=== PATIENT | female | born 1960 | race Caucasian/White ===

== ENCOUNTER 2021-03-16 07:44 | Day surgery (SDC) | payer OTHER ==
[~2021-03-16 07:44] MED LIST: Acetaminophen 325 MG Tab PO SCH; Lidocaine 1%/Sod Bicarbonate in NS 8.4% 1 ML Syringe IDERM PRN; Midazolam 1 MG/ML 2 ML SDV ONE; Pregabalin 25 MG Cap PO SCH; Propofol 200 MG/20 ML SDV ONE; Sodium Chloride 0.9% 10 ML Syringe FLUSH PRN; oxyCODONE ER 10 MG TAB.ER PO SCH
[2021-03-16] MEDS ORDERED: Ropivacaine 0.5% 5 MG/ML 30 ML SDV ONE (07:46)
[2021-03-16] MEDS ORDERED: EPINEPHrine 1 MG/ML SDV ONE (07:46)
[2021-03-16] MEDS ORDERED: ceFAZolin 1 GM Vial ONE (07:52)
[2021-03-16] MEDS: Lactated Ringers 1,000 ML IV SCH ×2 (08:05→13:15)
--- NOTE | 2021-03-16 08:19 | PCM.PREANE ---
Preanesthetic Assessment - Procedure Proposed Procedure: Right Total Knee Arthroplasty with Left Knee steroid Injection. - Anesthesia/Transfusion/Family Hx Anesthesia History: Prior Anesthesia Without Reaction Family History of Anesthesia Reaction: No Transfusion History: No Prior Transfusion(s) Intubation History: Unknown - Review of Systems General: No Symptoms Pulmonary: No Symptoms (History of DENAE with failed CPAP: patient denies DENAE/ Former smoker quit 1984, ETOH: rarely) Cardiovascular: No Symptoms (HTN) Gastrointestinal: No Symptoms (GERD-tums, Colitis, History of gastric bypass) Neurological: No Symptoms Other: Reports: Diabetes (History of prediabetes prior to weight loss.), Thyroid Problems (History of hypothyroidism), Depression - Physical Assessment NPO Status Date: 03/15/21 NPO Status Time: 23:58 Vital Signs: HR: 66 B/P: 140/82 Sat: 95% Resp: 18 Temp: 98 Height: 1.57 m Weight: 100 kg ASA Class: 2 Mental Status: Alert & Oriented x3 Airway Class: Mallampati = 2 Dentition: Reports: Normal Dentition, Caries Thyro-Mental Finger Breadths: 3 Mouth Opening Finger Breadths: 3 ROM/Head Extension: Full Lungs: Clear to Auscultation, Normal Respiratory Effort Cardiovascular: Regular Rate, Regular Rhythm, No Murmurs - Lab Values: All labs reviewed and noted and within acceptable ranges to proceed with scheduled procedure. - Imaging/EKG Impressions: EKG: NSR rate=75, LAD, ? LVH - Allergies Allergies/Adverse Reactions: Allergies Allergy/AdvReac Type Severity Reaction Status Date / Time lisinopril AdvReac Cough Verified 03/13/21 11:23 - Anesthesia Plan Pre-Op Medication Ordered: Other (Preoperative Meds: (lyrica, tylenol, oxycontin) all p.o. at 0816) - Acknowledgements Anesthesia Type Planned: Spinal (and a Right Adductor Canal Block under US guidance for post operative pain control requested by Dr. Mason.) Pt an Appropriate Candidate for the Planned Anesthesia: Yes Alternatives and Risks of Anesthesia Discussed w Pt/Guardian: Yes Pt/Guardian Understands and Agrees with Anesthesia Plan: Yes PreAnesthesia Questionnaire HEENT History: Reports: Impaired Vision, Other (See Below) Other HEENT History: wears glasses, contact Cardiovascular History: Reports: Hypertension Respiratory History: Reports: None Gastrointestinal History: Reports: GERD, Other (See Below) Other Gastrointestinal History: ulcerative colitis Genitourinary History: Reports: None ENAMEL FINISHER History: Reports: None Musculoskeletal History: Reports: Arthritis Neurological History: Reports: None Psychiatric History: Reports: Depression Endocrine/Metabolic History: Reports: Hypothyroidism Hematologic History: Reports: None Immunologic History: Reports: None Oncologic (Cancer) History: Reports: None Dermatologic History: Reports: None - Infectious Disease History Infectious Disease History: Reports: None - Past Surgical History Head Surgeries/Procedures: Reports: None Cardiovascular Surgical History: Reports: None Respiratory Surgical History: Reports: None GI Surgical History: Reports: Appendectomy, Bariatric Procedure, Colonoscopy Female Surgical History: Reports: Hysterectomy Male Surgical History: Reports: None Endocrine Surgical History: Reports: None Neurological Surgical History: Reports: None Musculoskeletal Surgical History: Reports: None Oncologic Surgical History: Reports: None Dermatological Surgical History: Reports: None - SUBSTANCE USE Tobacco Use Status *Q: Former Tobacco User Recreational Drug Use History: No - HOME MEDS Home Medications: Home Meds Cholecalciferol (Vitamin D3) [Vitamin D3] 10,000 unit PO DAILY 03/13/21 [History] Diclofenac Sodium [Voltaren 1% Gel] 1 dose TOP BID PRN 03/13/21 [History] Levothyroxine 25 mcg PO DAILY 03/13/21 [History] Losartan/Hydrochlorothiazide [Losartan-HCTZ 50-12.5 MG] 1 tab PO DAILY 03/13/21 [History] Lysine 500 mg PO DAILY 03/13/21 [History] Magnesium 200 mg PO DAILY 03/13/21 [History] Multivitamin 1 tab PO DAILY 03/13/21 [History] estradioL [Estradiol] 0.5 mg PO DAILY 03/13/21 [History] hydroCHLOROthiazide [Hydrochlorothiazide] 12.5 mg PO DAILY 03/13/21 [History] sulfaSALAzine [Azulfidine] 1,000 mg PO DAILY 03/13/21 [History] Cyclobenzaprine [Flexeril] 10 mg PO BID PRN #20 tab 03/16/21 [Rx] Rivaroxaban [Xarelto] 10 mg PO DAILY #30 tab 03/16/21 [Rx] oxyCODONE 5 - 10 mg PO Q4H PRN #40 tab 03/16/21 [Rx] - CURRENT (IN HOUSE) MEDS Current Meds: Current Medications Acetaminophen (Acetaminophen 325 Mg Tab) 975 mg PO ONETIME ANAIS Stop: 03/16/21 16:00 Morphine Sulfate 8 mg/Epinephrine HCl 0.3 mg/Cefuroxime Sodium 750 mg/Ketorolac Tromethamine 30 mg/Sodium Chloride 7.9 ml 0 mg .XX ASDIRECTED PRN PRN Reason: Pain Stop: 03/16/21 16:00 Lactated Ringer's (Ringers, Lactated) 1,000 mls @ 125 mls/hr IV ASDIRECTED ANAIS Stop: 03/16/21 23:00 Lidocaine/Sodium Bicarbonate (Lidocaine 1%/Sod Bicarbonate In Ns 8.4% 1 Ml Syringe) 0.25 ml IDERM ONETIME PRN PRN Reason: Prior to IV Start Stop: 03/16/21 18:00 Oxycodone HCl (Oxycodone Er 10 Mg Tab.Er) 10 mg PO ONETIME ANAIS Stop: 03/16/21 16:00 Pregabalin (Pregabalin 25 Mg Cap) 50 mg PO ONETIME ANAIS Stop: 03/16/21 16:00 Sodium Chloride (Sodium Chloride 0.9% 10 Ml Syringe) 10 ml FLUSH ASDIRECTED PRN PRN Reason: Keep Vein Open Stop: 03/16/21 18:00 Discontinued Medications Cefazolin Sodium (Cefazolin 1 Gm Vial) Confirm Administered Dose 2 gm .ROUTE .STK-MED ONE Stop: 03/16/21 07:53 Epinephrine HCl (Epinephrine 1 Mg/Ml Sdv) Confirm Administered Dose 1 mg .ROUTE .STK-MED ONE Stop: 03/16/21 07:47 Midazolam HCl (Midazolam 1 Mg/Ml 2 Ml Sdv) Confirm Administered Dose 2 mg .ROUTE .STK-MED ONE Stop: 03/16/21 07:43 Propofol (Propofol 200 Mg/20 Ml Sdv) Confirm Administered Dose 400 mg .ROUTE .STK-MED ONE Stop: 03/16/21 07:43 Ropivacaine (Ropivacaine 0.5% 5 Mg/Ml 30 Ml Sdv) Confirm Administered Dose 30 ml .ROUTE .STK-MED ONE Stop: 03/16/21 07:47
[2021-03-16] MEDS ORDERED: ePHEDrine 50 MG/ML SDV ONE (09:51)
[2021-03-16] MEDS ORDERED: fentaNYL 100 MCG/2 ML SDV ONE (10:14)
[2021-03-16] MEDS: Bupivacaine 0.25% 10 ML SDV ONE ×2 (10:27→11:40)
[2021-03-16] MEDS: Vancomycin 1 GM SDV ONE ×2 (10:27→11:19)
[2021-03-16] MEDS: Morphine 8 MG, EPINEPHrine 0.3 MG, Cefuroxime 750 MG, Ketorolac 30 MG, Sodium Chloride ... PRN ×10 (10:28→11:16)
[2021-03-16] MEDS: Triamcinolone Acetonide 40 MG/ML 1 ML SDV ONE ×2 (10:29→11:40)
[2021-03-16] MEDS ORDERED: Ketorolac 15 MG/ML SDV ONE (10:34)
[2021-03-16] MEDS ORDERED: Propofol 200 MG/20 ML SDV ONE ×2 (10:45→10:46)
--- NOTE | 2021-03-16 12:12 | PCM.POSTAN ---
POST ANESTHESIA ASSESSMENT - MENTAL STATUS Mental Status: Alert, Oriented - VITAL SIGNS Vital Signs: Last Vital Signs Temp 208.2 F H 03/16/21 12:00 Pulse 66 03/16/21 12:00 Resp 18 03/16/21 12:00 BP 107/67 03/16/21 12:00 Pulse Ox 100 03/16/21 12:00 1143 in PACU BP: 115/56 HR 85 RR 15 Temp: 97.4 Sat 96 2 liters - RESPIRATORY Respiratory Status: Respiratory Rate WNL, Airway Patent, O2 Saturation Stable - CARDIOVASCULAR CV Status: Pulse Rate WNL, Blood Pressure Stable - GASTROINTESTINAL GI Status: No Symptoms - PAIN Pain Score: 7 Free Text/Narrative:: Adductor canal block completed following arrival to PACU - POST OP HYDRATION Hydration Status: Adequate & Stable
--- NOTE | 2021-03-16 12:15 | PCM.PRNOTE ---
- Free Text/Narrative Note: Right selective femoral nerve block at the adductor canal for post-procedure pain control under US guidance requested by Dr. Mason. Date: 03/16/21 Time Out: 1150 Start: 1151 End: 1200 Chart reviewed. Consent signed. Questions answered. Appropriate monitors applied. Time out performed. Large amount of adipose tissue noted, depth increased to allow for visualization of anatomy. Right mid-shaft femur identified with ultrasound, scanning medially of femur, the femoral artery in the adductor canal visualized, and the femoral nerve located laterally to the artery. The skin was prepped lateral to the ultrasound probe with chlorahexadine times two. The 21ga 4 insulated block needle was inserted under direct ultrasound guidance into the adductor canal. 25mL of 0.5% ropivacaine with 1:200,000 epinephrine was injected circumferentially around the nerve with intermittent negative aspiration noted. Patient tolerated the procedure well. Sterile technique noted along with sterile gloves, mask, and sterile probe cover. See picture on progress note and vital signs on nurses notes. Block completed in PACU. Jamia Stuart, ACCOUNTANT SYSTEMS
[2021-03-16] MEDS ORDERED: Cyclobenzaprine 10 MG Tab PO ONE (12:18)
[2021-03-16] MEDS ORDERED: oxyCODONE 5 MG Tab PO PRN (12:18)
[2021-03-16] MEDS ORDERED: Lactated Ringers 1,000 ML ONE (12:27)
--- NOTE | 2021-03-16 12:31 | PCM48HPAN ---
Post Anesthesia Note - EVALUATION WITHIN 48HRS OF ANESTHETIC Vital Signs in Normal Range: Yes Patient Participated in Evaluation: Yes Respiratory Function Stable: Yes Airway Patent: Yes Cardiovascular Function Stable: Yes Hydration Status Stable: Yes Pain Control Satisfactory: Yes Nausea and Vomiting Control Satisfactory: Yes Mental Status Recovered: Yes Vital Signs: Last Vital Signs Temp 97.9 F 03/16/21 12:15 Pulse 65 03/16/21 12:15 Resp 12 03/16/21 12:15 BP 116/65 03/16/21 12:15 Pulse Ox 99 03/16/21 12:15
--- NOTE | 2021-03-16 12:42 | CR ---
Right knee: AP and crosstable lateral views of the right knee were obtained. Comparison: Prior right knee CT study of 03/03/21. Knee prosthesis is seen. Components are aligned. Patellar prosthesis is also noted. Soft tissue air is noted. Underlying bony structures show nothing acute. Impression: 1. Satisfactory postop radiographic appearance of recently placed right knee prostheses. Diagnostic code #2
--- NOTE | 2021-03-31 11:19 | PCM.OPNOTE ---
- General Post-Op/Procedure Note Date of Surgery/Procedure: 03/16/21 Operative Procedure(s): right total knee arthroplasty with david [employer] robotics and left knee corticosteroid injection Pre Op Diagnosis: bilateral knee osteoarthrosis Post-Op Diagnosis: Same Anesthesia Technique: Local, MAC, Spinal Primary Surgeon: Rey Mason Anesthesia Provider: Jamia Stuart Facilities Management Executive: Blanca Cox Facilities Management Executive: Celena Mullins EBL in mLs: 200 Complications: None Condition: Good Free Text/Narrative:: 12/03 13mm 29x9
--- NOTE | 2021-03-31 15:18 | OR ---
DATE OF OPERATION: 03/16/2021 SURGEON: Rey Mason MD OPERATION PERFORMED: Right total knee arthroplasty with [employer] robot[employer] and left knee corticosteroid injection. PREOPERATIVE DIAGNOSIS: Bilateral knee osteoarthrosis. POSTOPERATIVE DIAGNOSIS: Bilateral knee osteoarthrosis. ANESTHESIA: Local MAC with spinal. ANESTHESIA PROVIDER: Jose Luis Moss. ASSISTANTS: Blanca Cox PA-C and Celena Mullins LPN. ESTIMATED BLOOD LOSS: 200 mL. COMPLICATIONS: None. CONDITION: Stable. IMPLANT: 1. University size 3 press-fit CR femur. 2. University size 3 press-fit tibial baseplate. 3. Lala size 3 13 mm CS polyethylene insert. 4. University size 29 x 9 mm press-fit asymmetric patella. DESCRIPTION OF PROCEDURE: The patient was identified in the preoperative holding area where proper site was marked and identified by the surgeon. The patient was taken back to the operative theater where after adequate anesthesia, the patient's right lower extremity had a nonsterile tourniquet applied and then sterilely prepped and draped in the usual sterile fashion. OR time-out was performed. The patient received 2 g IV Ancef. Right lower extremity had the leg alegria boot applied and then was exsanguinated. Tourniquet was insufflated to 250 mmHg. Standard anterior incision was made and medial parapatellar arthrotomy was created. Deep fibers of the MCL were raised and anterior fat pad was resected. Attention was turned to the patella. Patella measured 21, resected to a 13 for 29 x 9 mm patella. Drill holes were then drilled and found to have adequate bone. At this time, two 4.0 Schanz pins were placed intra-incisionally on the femur and the Lala Aditya robotic array for the femur was placed. Two more small focal incisions were placed on the tibia 3 fingerbreadths below the tibial tubercle and the [employer] robotic array was placed. Checkpoints were placed on the femur and the tibia. Hip center rotation was obtained. Medial and lateral malleoli were marked. Both checkpoints were then marked. 40 points were then obtained on both the femur and the tibia for this [employer] robotic plan. The patient's knee then was brought to full extension. The patient was noted to have greater than 15 degrees of recurvatum. I then did varus-valgus instability at 0 degrees and at 90 degrees of flexion. At this time, we did 20 mm flexion and extension gaps with the patient. At this time, the [employer] robotic saw blade was brought in. The tibial cut was completed as well as posterior femoral cut, anterior femoral cut, and anterior chamfer cut. Saw blade was then switched and the distal femoral cut and posterior chamfer cuts were completed. It was found to have adequate bony resection as well as adequate bone stock. At this time, bony fragments were removed as well as the medial and lateral meniscus were resected and posterior osteophytes were removed. The size 3 trial baseplate was then placed. Size 3 trial femur was placed and a 9 mm trial poly was placed. The patient was noted to have significant extensor lag still. I was then able to get up to a size 13 and the patient had just 4 to 5 degrees of recurvatum which was significantly improved from previous. At this time, it was otherwise stable to varus-valgus stresses. The femur drill holes were drilled. The tibia was stamped and drilled in the proper rotation. Trial implants were then removed. The tibia was impacted into place. Size 3 femur was impacted [address] place and the 13 mm polyethylene insert was impacted in place. The patient's knee was brought to full extension. A 29 x 9 mm press-fit patella was then press-fit in place. At this time, tourniquet was deflated. Bleeders were cauterized. The [employer] robotic checkpoints were removed. 1 L pulse lavage irrigation with Ancef was irrigated through the knee along with 400 mL Irrisept irrigation. Periarticular injection was completed. Topical tranexamic acid and vancomycin powder were applied. A #2 barbed suture was used for closure of the medial parapatellar arthrotomy. 2-0 Vicryl was used subcutaneously as well as Stratafix and Prineo was used for skin closure. The patient had a sterile soft dressing applied. Attention was turned to the contralateral knee and 2 mL of 40 mg Kenalog and 4 mL of 0.25% Marcaine were injected in the left knee. The patient tolerated this well, was sent to PACU in stable condition. MMODAL /[id number]
== END 2021-03-16 15:48 | disposition home or self-care (01) ==
LOC: JD.SDS 07:44
PROVIDERS: ATTEND Orthopaedic Surgery
DX: M17.0 Bilateral primary osteoarthritis of knee (principal); G47.33 Obstructive sleep apnea (adult) (pediatric); E11.9 Type 2 diabetes mellitus without complications; I10 Essential (primary) hypertension; E03.9 Hypothyroidism, unspecified; Z90.49 Acquired absence of other specified parts of digestive tract; Z88.8 Allergy status to other drugs, medicaments and biological substances; Z79.899 Other long term (current) drug therapy; Z87.891 Personal history of nicotine dependence
CPT/HCPCS: 20610; 27447; 73560; 97110; 97116; 97161; 97165; 97535; A9270; C1713; C1776; J0171; J0690; J0697; J1885; J2250; J2270; J2704; J2795; J3010; J3301; J3370; J3490; J7120; 01402; 64450; 76942

== ENCOUNTER 2021-06-22 07:48 | Day surgery (SDC) | payer OTHER ==
[~2021-06-22 07:48] MED LIST changes: +Lactated Ringers 1,000 ML IV SCH; -Midazolam 1 MG/ML 2 ML SDV ONE; +Morphine 8 MG, EPINEPHrine 0.3 MG, Cefuroxime 750 MG, Ketorolac 30 MG, Sodium Chloride ... PRN; -Propofol 200 MG/20 ML SDV ONE
--- NOTE | 2021-06-22 08:07 | PCM.PREANE ---
Preanesthetic Assessment - Anesthesia/Transfusion/Family Hx Anesthesia History: Prior Anesthesia Without Reaction Family History of Anesthesia Reaction: No Transfusion History: No Prior Transfusion(s) Intubation History: Unknown - Review of Systems General: No Symptoms Pulmonary: Other (DENAE, failed CPAP) Cardiovascular: Other (HTN) Gastrointestinal: Other (GERD with TUMs usage and resolves it, S/P gastric bypass) Neurological: No Symptoms Other: Reports: Diabetes (DM 2), Thyroid Problems - Physical Assessment NPO Status Date: 06/21/21 NPO Status Time: 20:00 Weight: 98.1 kg ASA Class: 3 Mental Status: Alert & Oriented x3 Airway Class: Mallampati = 2 Dentition: Reports: Normal Dentition Thyro-Mental Finger Breadths: 3 Mouth Opening Finger Breadths: 3 ROM/Head Extension: Full Lungs: Clear to Auscultation, Normal Respiratory Effort Cardiovascular: Regular Rate, Regular Rhythm - Imaging/EKG Impressions: ekg nsr at 65 - Allergies Allergies/Adverse Reactions: Allergies Allergy/AdvReac Type Severity Reaction Status Date / Time lisinopril AdvReac Cough Verified 06/20/21 11:58 - Acknowledgements Anesthesia Type Planned: Spinal Pt an Appropriate Candidate for the Planned Anesthesia: Yes Alternatives and Risks of Anesthesia Discussed w Pt/Guardian: Yes Pt/Guardian Understands and Agrees with Anesthesia Plan: Yes PreAnesthesia Questionnaire HEENT History: Reports: Impaired Vision, Other (See Below) Other HEENT History: wears glasses, contact Cardiovascular History: Reports: Hypertension Respiratory History: Reports: Sleep Apnea Gastrointestinal History: Reports: GERD, Other (See Below) Other Gastrointestinal History: ulcerative colitis Genitourinary History: Reports: None SHIPPING SUPPORT History: Reports: None Musculoskeletal History: Reports: Arthritis Neurological History: Reports: None Psychiatric History: Reports: Depression Endocrine/Metabolic History: Reports: Hypothyroidism Hematologic History: Reports: None Immunologic History: Reports: None Oncologic (Cancer) History: Reports: None Dermatologic History: Reports: None - Infectious Disease History Infectious Disease History: Reports: None - Past Surgical History Head Surgeries/Procedures: Reports: None Cardiovascular Surgical History: Reports: None Respiratory Surgical History: Reports: None GI Surgical History: Reports: Appendectomy, Bariatric Procedure, Colonoscopy Female Surgical History: Reports: Hysterectomy Male Surgical History: Reports: None Endocrine Surgical History: Reports: None Neurological Surgical History: Reports: None Musculoskeletal Surgical History: Reports: Knee Replacement Oncologic Surgical History: Reports: None Dermatological Surgical History: Reports: None - SUBSTANCE USE Tobacco Use Status *Q: Former Tobacco User Recreational Drug Use History: No - HOME MEDS Home Medications: Home Meds Cholecalciferol (Vitamin D3) [Vitamin D3] 10,000 unit PO DAILY 03/13/21 [History] Diclofenac Sodium [Voltaren 1% Gel] 1 dose TOP BID PRN 03/13/21 [History] Levothyroxine 25 mcg PO DAILY 03/13/21 [History] Losartan/Hydrochlorothiazide [Losartan-HCTZ 50-12.5 MG] 1 tab PO DAILY 03/13/21 [History] Lysine 500 mg PO DAILY 03/13/21 [History] Magnesium 200 mg PO DAILY 03/13/21 [History] Multivitamin 1 tab PO DAILY 03/13/21 [History] estradioL [Estradiol] 0.5 mg PO DAILY 03/13/21 [History] hydroCHLOROthiazide [Hydrochlorothiazide] 12.5 mg PO DAILY 03/13/21 [History] sulfaSALAzine [Azulfidine] 1,000 mg PO DAILY 03/13/21 [History] Cyclobenzaprine [Flexeril] 10 mg PO BID PRN #20 tab 06/19/21 [Rx] Rivaroxaban [Xarelto] 10 mg PO DAILY #30 tab 06/19/21 [Rx] oxyCODONE 5 - 10 mg PO Q4H PRN #40 tab 06/19/21 [Rx] - CURRENT (IN HOUSE) MEDS Current Meds: Current Medications Acetaminophen (Acetaminophen 325 Mg Tab) 975 mg PO ONETIME ANAIS Stop: 06/22/21 13:00 Morphine Sulfate 8 mg/Epinephrine HCl 0.3 mg/Cefuroxime Sodium 750 mg/Ketorolac Tromethamine 30 mg/Sodium Chloride 7.9 ml 0 mg .XX ASDIRECTED PRN PRN Reason: Pain Stop: 06/22/21 13:00 Cyclobenzaprine HCl (Cyclobenzaprine 10 Mg Tab) 10 mg PO ONETIME PRN PRN Reason: post op pain control Stop: 06/22/21 16:00 Lactated Ringer's (Ringers, Lactated) 1,000 mls @ 125 mls/hr IV ASDIRECTED ANAIS Stop: 06/22/21 23:00 Lidocaine/Sodium Bicarbonate (Lidocaine 1%/Sod Bicarbonate In Ns 8.4% 1 Ml Syringe) 0.25 ml IDERM ONETIME PRN PRN Reason: Prior to IV Start Stop: 06/22/21 18:00 Oxycodone HCl (Oxycodone 5 Mg Tab) 5 - 10 mg PO ONETIME PRN PRN Reason: post op pain control Stop: 06/22/21 16:00 Oxycodone HCl (Oxycodone Er 10 Mg Tab.Er) 10 mg PO ONETIME ANAIS Stop: 06/22/21 13:00 Pregabalin (Pregabalin 25 Mg Cap) 50 mg PO ONETIME ANAIS Stop: 06/22/21 13:00 Sodium Chloride (Sodium Chloride 0.9% 10 Ml Syringe) 10 ml FLUSH ASDIRECTED PRN PRN Reason: Keep Vein Open Stop: 06/22/21 18:00
[2021-06-22] MEDS ORDERED: Vancomycin 1 GM SDV ONE (08:08)
[2021-06-22] MEDS ORDERED: Cyclobenzaprine 10 MG Tab PO PRN (10:00)
[2021-06-22] MEDS ORDERED: Propofol 200 MG/20 ML SDV ONE ×2 (10:00→11:21)
[2021-06-22] MEDS ORDERED: oxyCODONE 5 MG Tab PO PRN (10:00)
[2021-06-22] MEDS ORDERED: ceFAZolin 1 GM Vial ONE (10:00)
[2021-06-22] MEDS ORDERED: fentaNYL 100 MCG/2 ML SDV ONE (10:00)
[2021-06-22] MEDS ORDERED: Midazolam 1 MG/ML 2 ML SDV ONE (10:00)
[2021-06-22] MEDS ORDERED: Lactated Ringers 1,000 ML ONE (10:23)
[2021-06-22] MEDS ORDERED: EPINEPHrine 1 MG/ML SDV ONE (10:25)
[2021-06-22] MEDS ORDERED: Ropivacaine 0.5% 5 MG/ML 30 ML SDV ONE (10:25)
[2021-06-22] MEDS ORDERED: ePHEDrine 50 MG/ML SDV ONE (10:29)
[2021-06-22] MEDS ORDERED: Ondansetron 4 MG/2 ML SDV IVPUSH PRN (10:29)
[2021-06-22] MEDS ORDERED: fentaNYL 100 MCG/2 ML SDV IVPUSH PRN (10:29)
[2021-06-22] MEDS ORDERED: HYDROmorphone 0.5 MG/0.5 ML Syringe IVPUSH PRN (10:29)
[2021-06-22] MEDS ORDERED: Ketorolac 15 MG/ML SDV ONE (11:50)
[2021-06-22] MEDS ORDERED: Ondansetron 4 MG/2 ML SDV ONE (11:51)
--- NOTE | 2021-06-22 12:05 | PCM.POSTAN ---
POST ANESTHESIA ASSESSMENT - MENTAL STATUS Mental Status: Alert, Oriented - VITAL SIGNS Vital Signs: Last Vital Signs Temp 97.0 F 06/22/21 08:15 Pulse 66 06/22/21 08:10 Resp 16 06/22/21 08:10 BP 131/74 06/22/21 08:10 Pulse Ox 100 06/22/21 08:10 1158 92 19 97.6 103/61 97% - RESPIRATORY Respiratory Status: Respiratory Rate WNL, Airway Patent, O2 Saturation Stable, Supplemental Oxygen - CARDIOVASCULAR CV Status: Pulse Rate WNL, Blood Pressure Stable - GASTROINTESTINAL GI Status: No Symptoms - PAIN Pain Score: 0 - POST OP HYDRATION Hydration Status: Adequate & Stable
--- NOTE | 2021-06-22 12:33 | PCM.SN.2 ---
- Free Text/Narrative Note: Left selective femoral nerve block at the adductor canal for post-procedure pain control under US guidance requested by Dr. Mason. Time Out: 1211 Start: 1213 End: 1218 Chart reviewed. Consent signed. Questions answered. Appropriate monitors applied. Time out performed. Left mid-shaft femur identified with ultrasound, scanning medially of femur, the femoral artery in the adductor canal visualized, and the femoral nerve located laterally to the artery. The skin was prepped lateral to the ultrasound probe with chlorahexadine times two. The 21ga 4 insulated block needle was inserted under direct ultrasound guidance into the adductor canal. 20mL of 0.5% ropivacaine with 1:200,000 epinephrine was injected circumferentially around the nerve with intermittent negative aspiration noted. Patient tolerated the procedure well. Sterile technique noted along with sterile gloves, mask, and sterile probe cover. See picture on progress note and vital signs on nurses notes. Block completed in PACU. Domi Pinedo CRNA Time Documentation
--- NOTE | 2021-06-22 12:55 | CR ---
Left knee: AP and crosstable lateral views of the left knee were obtained. Comparison: Prior CT left knee study of 06/10/21. Knee prosthesis is seen. Patellar prosthesis is also noted. Underlying bony structures show nothing else acute. Mild amount of soft tissue air is seen. Impression: 1. Satisfactory postoperative radiographic appearance of recently placed left knee prostheses. Diagnostic code #2
--- NOTE | 2021-06-22 14:00 | PCM48HPAN ---
Post Anesthesia Note - EVALUATION WITHIN 48HRS OF ANESTHETIC Vital Signs in Normal Range: Yes Patient Participated in Evaluation: Yes Respiratory Function Stable: Yes Airway Patent: Yes Cardiovascular Function Stable: Yes Hydration Status Stable: Yes Pain Control Satisfactory: Yes Nausea and Vomiting Control Satisfactory: Yes Mental Status Recovered: Yes Vital Signs: Last Vital Signs Temp 36.2 C 06/22/21 12:45 Pulse 76 06/22/21 12:45 Resp 14 06/22/21 12:45 BP 105/62 06/22/21 12:45 Pulse Ox 100 06/22/21 12:45
--- NOTE | 2021-07-01 07:02 | PCM.OPNOTE ---
- General Post-Op/Procedure Note Date of Surgery/Procedure: 06/22/21 Operative Procedure(s): left total knee arthroplasty with [employer]id [employer] robot[employer] Pre Op Diagnosis: left knee osteoarthrosis Post-Op Diagnosis: Same Anesthesia Technique: Local, MAC, Spinal Primary Surgeon: Rey Mason Anesthesia Provider: Garett Hyman Inspector Ball Points: Blanca Cox Inspector Ball Points: Frida Wells EBKenia in mLs: 100 Complications: None Condition: Good Free Text/Narrative:: 3/ 9mm 32x10 press fit
--- NOTE | 2021-07-06 08:16 | OR ---
DATE OF OPERATION: 06/22/2021 SURGEON: Rey Mason MD OPERATION PERFORMED: Left total knee arthroplasty using Tab[employer] robotics. PREOPERATIVE DIAGNOSIS: Left knee osteoarthrosis. POSTOPERATIVE DIAGNOSIS: Left knee osteoarthrosis. ANESTHESIA: Local MAC with spinal. ANESTHESIA PROVIDER: Garett Hyman CRNA ASSISTANTS: Blanca Cox PA-C and Frida Wells RN ESTIMATED BLOOD LOSS: 100 mL. COMPLICATIONS: None. CONDITION: Stable. IMPLANTS: 1. Lala size 3 press-fit CR femur. 2. Tabiona size 3 press-fit tibial baseplate. 3. Lala size 3, 9 mm CS polyethylene insert. 4. Lala size 32 x 10 mm press-fit asymmetric patella. DESCRIPTION OF PROCEDURE: The patient was identified in the preop holding area. Proper site was marked and identified by surgeon. The patient was taken back to the operating theater, where after adequate anesthesia, the patient's left lower extremity had a nonsterile tourniquet applied. It was then sterilely prepped and draped in the usual sterile fashion. OR time-out was performed. The patient received 2 g IV Ancef. Leg alegria was applied in the left lower extremity. Left lower extremity was exsanguinated. Tourniquet was insufflated to 250 mmHg. Standard anterior incision was made and medial parapatellar arthrotomy was created. Deep fibers of the MCL were raised and anterior fat pad was resected. Attention was turned to the patella. Patella measured 24, resected to 14 for a 32 x 10 mm patella. Drill holes were then drilled. Two 4.0 Schanz pins then were placed intra-incisionally on the femur for the Lala Aditya robotic array and 2 more were placed in the tibia extra incisional length 3 fingerbreadths below the tibial tubercle. Checkpoints were applied to the femur and the tibia. Hip center rotation was obtained. Medial and lateral malleoli were marked. Checkpoints were marked. 40 points were then obtained of both the femur and the tibia for the Lala Aditya robotic plan. The patient's knee was brought to full extension as well as 90 degrees of flexion, and varus and valgus stresses were applied. Lala Aditya robotic plan for this patient was then undertaken. A straight saw blade was brought in. Tibia cut was completed. The anterior femoral cut, anterior chamfer cut, and posterior femoral cuts were completed. Saw blade was switched. Distal femoral cut and posterior chamfer cut were then completed. All bony fragments were removed. Medial and lateral menisci were resected as well as any posterior osteophytes. At this time, trial implants size 3 and size 3 were placed. 9 mm trial was placed. The patient had full extension and flexion. No signs of liftoff and no varus-valgus instability. Femoral drill holes were drilled. Tibia was stamped and drilled in proper rotation. Size 3 press-fit base plate was then impacted in place. Size 3 femur was impacted in place. A 9 mm CS polyethylene insert was then impacted in place. 32 x 10 mm press-fit patella was pressed into place. Tourniquet was deflated. Bleeders were cauterized. 1 L pulse lavage irrigation with Ancef was irrigated through the knee along with 400 mL Irrisept irrigation. Topical tranexamic acid and vancomycin powder were applied. Periarticular injection was completed. #2 barbed suture was used for closure of the medial parapatellar arthrotomy. Checkpoints and arrays and pins were removed before this. 2-0 Vicryl and Stratafix were used for subcutaneous closure, and Prineo was used for skin closure. The patient tolerated the procedure well, sent to PACU in stable condition. CRISTIAN /[id number]
== END 2021-06-22 15:18 | disposition home or self-care (01) ==
LOC: JD.SDS 07:48
PROVIDERS: ATTEND Orthopaedic Surgery
DX: M17.0 Bilateral primary osteoarthritis of knee (principal); E11.9 Type 2 diabetes mellitus without complications; G47.33 Obstructive sleep apnea (adult) (pediatric); E03.9 Hypothyroidism, unspecified; I10 Essential (primary) hypertension; Z88.8 Allergy status to other drugs, medicaments and biological substances; Z98.890 Other specified postprocedural states; Z79.899 Other long term (current) drug therapy; Z20.822 Contact with and (suspected) exposure to COVID-19
CPT/HCPCS: 27447; 73560; 97110; 97161; A9270; C1713; C1776; J0171; J0690; J0697; J1885; J2250; J2270; J2370; J2405; J2704; J2795; J3010; J3370; J7120; 01402; 64450; 76942